=== PATIENT | female | born 1955 | race Caucasian/White ===

== ENCOUNTER 2017-08-03 15:57 | Emergency (ER) | payer BC ==
[~2017-08-03] VITALS: Ht 152.4 cm; Wt 63.4 kg
[~2017-08-03 15:57] MED LIST: CHOL100010 PO; EZET10TA63 PO; LISI-461 PO; ROSU5TAB PO; SNG10 PO; SUMA100T16 PO; TRAZ50TA35 PO; VENL75CA73 PO
[2017-08-03 16:06] VITALS: TEMP 37.2; Ht 152.4 cm; Wt 63.4 kg
[2017-08-03] MEDS ORDERED: LORAZEPAM 2 MG/ML 1 ML VIAL IV STA (17:13)
[2017-08-03] MEDS ORDERED: SODIUM CHLORIDE 0.9% 1000ML 500 ML IV STA (17:13)
[2017-08-03 17:43] LABS: BASO % 0.5 %; BASO ABS # 0.04 K/uL (0-0.2); EOS % 2.1 %; EOS ABS # 0.18 K/uL (0-0.5); HEMOGLOBIN 13.9 g/dL (12.0-16.0); IG# 0.04 K/uL (0.00-0.02); LYMPH % 25.6 %; LYMPH ABS # 2.23 K/uL (1.2-3.4); MEAN CELL VOLUME 93.6 fL (80-100); MEAN CORPUSCULAR HEMOGLOBIN 31.7 pg (25-34); MEAN CORPUSCULAR HGB CONC 33.9 g/dl (32-36); MEAN PLATELET VOLUME 9.9 fL (7.4-10.4); MONO % 9.7 %; MONO ABS # 0.84 K/uL (0.11-0.59); NEUT % 61.6 %; NEUT ABS # 5.37 K/uL (1.4-6.5); PLATELET COUNT 276 K/uL (130-400); RED CELL DISTRIBUTION WIDTH CV 13.3 % (11.5-14.5); RED CELL DISTRIBUTION WIDTH SD 45.4 fL (36.4-46.3)
[2017-08-03] MEDS ORDERED: EFFEXOR XR PO (17:53)
[2017-08-03] MEDS ORDERED: TRAZ100T29 PO (17:53)
[2017-08-03] MEDS ORDERED: FENO1POW PO (17:53)
[2017-08-03 18:05] LABS: CKMB 0.6 ng/ml (0.5-3.6); CREATININE 0.82 mg/dl (0.60-1.20)
--- NOTE | 2017-08-03 19:29 | EMERGENCY ROOM VISIT NOTE ---
History First contact with patient: 16:45 Chief Complaint: HYPERTENSION Stated Complaint: HIGH BLOOD PRESSURE History of Present Illness The patient is a 61 year old female who presents to the Emergency Room with complaints of high blood pressure. The patient states that he she has a history of hypertension and hyperlipidemia. She is currently on medication for both. The patient states that she was at her family doctor on Monday and her blood pressure was high. She was taking lisinopril 10 mg and the increased it to 20 mg a day. This is her only blood pressure medication. She states she did not take the medication until 11:00 this morning. She states this morning when she got up she felt a little dizzy. She did not take her blood pressure at that time. The patient states the dizziness has resolved. She now just feels a little "off". The patient denies any visual changes, diaphoresis, chest pain or shortness of breath. The patient states that over the past several months she does get "winded" if she walks a lot. But that is nothing new today. She did mention that to her family physician on Monday. The patient also states that she had a stress test 3 years ago which was normal. The patient states that her highest blood pressure reading this morning which he was taking it almost every 20 minutes and the last one at 3:30 PM was 198/ 112. Review of Systems 10 system review was performed and was negative unless stated otherwise history of present illness. Past Medical/Surgical History Hyperlipidemia, hypertension, asthma Social History Smoking Status: Former Smoker Drug Use: none Marital Status: Housing Status: lives with family Occupation Status: employed Current/Historical Medications Scheduled Fenofibrate (Bulk) (Fenofibrate), 134 MG PO QAM Lisinopril (Zestril), 10 MG PO QAM Montelukast Sod (Montelukast Sodium), 1 TAB PO QAM Rosuvastatin Calcium (Crestor), 5 MG PO QAM [Effexor Xr], 225 MG PO QAM Scheduled PRN Sumatriptan Succinate (Imitrex), 100 MG PO PRN PRN for Headache Trazodone Hcl (Trazodone), 100 MG PO HS PRN for Sleep Physical Exam Vital Signs Date Time Temp Pulse Resp B/P (MAP) Pulse Ox O2 Delivery O2 Flow Rate FiO2 08/03/17 18:13 85 16 176/109 99 Room Air 08/03/17 17:38 90 16 167/110 97 Room Air 08/03/17 17:38 89 16 167/110 97 Room Air 08/03/17 16:06 37.2 104 17 164/102 99 Room Air Physical Exam GENERAL: 61-year-old female appears in no acute distress. MENTAL Status: Patient is alert and oriented 3. The patient appears anxious. EYES: PERRLA. EOMs intact. EARS: Canals clear. TMs without fluid level noted. NECK: Supple, no lymphadenopathy noted. No carotid bruits noted. LUNGS: Clear auscultation without wheezes rales or rhonchi. CARDIAC: Regular rate and rhythm without murmur. Pulses is full and equal throughout. ABDOMEN: Positive bowel sounds all 4 quadrants. Soft, nontender to palpation without organomegaly or masses. LOWER EXTREMITIES: No cyanosis or edema noted. Calves are nontender to palpation. Medical Decision & Procedures Laboratory Results 08/03/17 17:25 Red Blood Count 4.38, Mean Corpuscular Volume 93.6, Mean Corpuscular Hemoglobin 31.7, Mean Corpuscular Hemoglobin Concent 33.9, Mean Platelet Volume 9.9, Neutrophils (%) (Auto) 61.6, Lymphocytes (%) (Auto) 25.6, Monocytes (%) (Auto) 9.7, Eosinophils (%) (Auto) 2.1, Basophils (%) (Auto) 0.5, Neutrophils # (Auto) 5.37, Lymphocytes # (Auto) 2.23, Monocytes # (Auto) 0.84, Eosinophils # (Auto) 0.18, Basophils # (Auto) 0.04 08/03/17 17:25 Test 08/03/17 17:25 08/03/17 18:45 White Blood Count 8.70 K/uL (4.8-10.8) Red Blood Count 4.38 M/uL (4.2-5.4) Hemoglobin 13.9 g/dL (12.0-16.0) Hematocrit 41.0 % (37-47) Mean Corpuscular Volume 93.6 fL (80-100) Mean Corpuscular Hemoglobin 31.7 pg (25-34) Mean Corpuscular Hemoglobin Concent 33.9 g/dl (32-36) Platelet Count 276 K/uL (130-400) Mean Platelet Volume 9.9 fL (7.4-10.4) Neutrophils (%) (Auto) 61.6 % Lymphocytes (%) (Auto) 25.6 % Monocytes (%) (Auto) 9.7 % Eosinophils (%) (Auto) 2.1 % Basophils (%) (Auto) 0.5 % Neutrophils # (Auto) 5.37 K/uL (1.4-6.5) Lymphocytes # (Auto) 2.23 K/uL (1.2-3.4) Monocytes # (Auto) 0.84 K/uL (0.11-0.59) Eosinophils # (Auto) 0.18 K/uL (0-0.5) Basophils # (Auto) 0.04 K/uL (0-0.2) RDW Standard Deviation 45.4 fL (36.4-46.3) RDW Coefficient of Variation 13.3 % (11.5-14.5) Immature Granulocyte % (Auto) 0.5 % Immature Granulocyte # (Auto) 0.04 K/uL (0.00-0.02) Anion Gap 6.0 mmol/L (3-11) Est Creatinine Clear Calc Drug Dose 61.4 ml/min Estimated GFR () 90.8 Estimated GFR (Non- 78.3 BUN/Creatinine Ratio 21.6 (10-20) Calcium Level 9.0 mg/dl (8.5-10.1) Total Creatine Kinase 84 U/L (26-192) Creatine Kinase MB 0.6 ng/ml (0.5-3.6) Creatine Kinase MB Ratio 0.7 (0-3.0) Chemistry Specimen Hemolysis Bedside Troponin I < 0.030 ng/ml (0-0.045) Medications Administered Medications (Trade) Dose Ordered Sig/Colt Route Start Time Stop Time Status Last Admin Dose Admin Sodium Chloride 500 ml @ 999 mls/hr Q31M STAT IV 08/03/17 17:13 08/03/17 17:43 DC 08/03/17 17:38 999 MLS/HR Lorazepam (Ativan Inj) 1 mg NOW STAT IV 08/03/17 17:13 08/03/17 17:16 DC 08/03/17 17:38 1 MG ECG Indication: other (Hypertension) Rhythm: normal sinus Findings: no acute ischemic change Change: no significant change (From 12/17/2015) ED Course The patient was evaluated. IV access was obtained. The patient was given a 500 bolus of normal saline IV. She was given Ativan 1 mg IV for her anxiety. CBC and differential, CK-MB, [id number] troponin, renal profile was ordered. EKG was ordered and interpreted by myself as above without any acute findings. Labs are reviewed. White count was normal. Renal profile was normal. CK-MB was normal. [id number] troponin was 0. The patient's blood pressure remained high while in the emergency room. The patient was reevaluated and stated that she still did not have any headache, dizziness or chest pain. She states her nerves feel better from the Ativan. The patient's case was discussed with Dr. farah who agreed with treatment plan. The patient was discharged home in stable condition. Medical Decision The patient was not currently symptomatic from her hypertension. A cardiac workup was performed which was negative. Her blood pressure remained high but she just increased her lisinopril 3 days ago. The decision was made to have her follow-up with her PCP for closer blood pressure management. [place] Drug Monitoring Program Search Results: patient reviewed within database Medication Reconcilliation Current Medication List: was personally reviewed by me Blood Pressure Screening Patient's blood pressure: Elevated blood pressure Blood pressure disposition: Referred to PCP Impression Primary Impression: Hypertension Departure Information Dispostion Home / Self-Care Condition GOOD Referrals Angie Orantes M.D. (PCP) Forms HOME CARE DOCUMENTATION FORM, IMPORTANT VISIT INFORMATION, WORK / SCHOOL INSTRUCTIONS Patient Instructions Hypertension Id, [employer] Additional Instructions Take the lisinopril first thing in the morning. Take your blood pressure once daily at least 2 hours after taking the lisinopril. Follow low-salt diet. Call your PCP tomorrow about your ER visit today. Please inform them how high your blood pressure was yesterday. They may want to see you tomorrow or early next week for follow-up. A renal ultrasound for renal artery stenosis would be a possibility for further evaluation. If you experience any severe headache, dizziness, chest pain, return to the ER immediately. Problem Qualifiers Primary Impression: Hypertension Hypertension type: essential hypertension Qualified Codes: I10 - Essential ( primary) hypertension
[2017-08-03 19:54] VITALS: BP 170/114; PULSE 92; O2SAT 98
== END 2017-08-03 19:55 | disposition home or self-care (01) ==
LOC: C.EDB 15:58
DX: I10 Essential (primary) hypertension (principal); E78.00 Pure hypercholesterolemia, unspecified; Z79.899 Other long term (current) drug therapy; Z87.891 Personal history of nicotine dependence